=== PATIENT | male | born 1995 ===

== ENCOUNTER 2020-04-06 18:44 | Emergency (ER) | payer SELFPAY ==
[2020-04-06 18:52] VITALS: BP 120/66
[2020-04-06] MEDS ORDERED: DIPHtheria,PERTUSSIS(ACELL),TETANUS VACCINE/PF 0.5 ML VIAL IM ONE (22:42)
--- NOTE | 2020-04-06 23:10 | Emergency Department Report ---
Upper Extremity - HPI Chief Complaint: Puncture Wound Stated Complaint: FINGER LAC Time Seen by Provider: 04/06/20 22:42 Upper Extremity: Right Index Finger Occurred When: Today Symptoms: Yes Pain with Movement, Yes Limited Range of Movement, Yes Laceration or Abrasion, No Numbness, No Weakness, No Swelling, No Bruising/Ecchymosis Other History: 24-year-old [place] male accidentally cut finger on a piece of metal resulting in bleeding [facility]. Reports pain and throbbing with palpation and range of motion. No fever chills or sweats. States that the injury occurred by 1 hour prior to arrival ED Review of Systems ROS: Stated complaint: FINGER LAC Other details as noted in HPI Comment: All other systems reviewed and negative ED Past Medical Hx - Past Medical History Previous Medical History?: No - Surgical History Past Surgical History?: No - Medications Home Medications: Home Medications Medication Instructions Recorded Confirmed Last Taken Type cephALEXin [Keflex] 500 mg PO Q8HR #21 cap 04/06/20 Unknown Rx Upper Extremity Exam - Exam General: Vital signs noted. No distress. Alert and acting appropriately. Head and Torso: No HEENT Abnormality, No Neck Tenderness, No Chest/Lungs Abnormality, No Abdominal Tenderness, No Back Tenderness Shoulder Exam: Yes Normal Range of Motion in Shoulder, No Shoulder Tenderness, No Clavicle Tenderness, No Shoulder Deformity, No AC Joint Tenderness Arm Exam: No Arm/Humerus Tenderness, No Arm Deformity Elbow: No Elbow Tenderness, No Normal Range of Motion in Elbow, No Elbow D eformity Forearm: No Forearm Tenderness, No Forearm Deformity, No Pain with Pronation, No Pain with Supination Wrist: Yes Normal ROM in Wrist, No Wrist Tenderness, No Wrist Deformity, No Snuffbox Tenderness, No Pain with Axial Thumb Compression Hand: Yes Normal ROM in Digit(s), No Hand Tenderness, No Hand Deformity, No Digi t Tenderness, No Digit(s) Deformity, No Tendon Dysfunction CMS Exam: No Broken Skin, No Normal Distal Pulses, No Normal Capillary Refill, No Normal Distal Sensation Hand L/R Front: 1 - Partial avulsion of this area of the finger with the bleeding controlled ca pillary refills are brisk full range of motion is noted. ED Course Vital Signs 04/06/20 18:48 Temperature 98.1 F Pulse Rate 62 Respiratory 16 Rate Blood Pressure 120/66 [Right] O2 Sat by Pulse 99 Oximetry - Procedure Description Procedures done: Wound was irrigated with copious amounts of saline and clean with antibacterial soap and water. A antimicrobial nonstick dressing was placed as hemostasis was achieved and a splint was placed. Critical care attestation.: If time is entered above; I have spent that time in minutes in the direct care of this critically ill patient, excluding procedure time. ED Disposition Clinical Impression: Fingernail avulsion, partial Disposition: [id number] TO HOME OR SELFCARE Is pt being admited?: No Does the pt Need Aspirin: No Condition: Stable Instructions: Skin Avulsion (ED) Additional Instructions: Be sure to keep wound clean with antibacterial soap and water and follow-up in 2 to 3 days for wound reevaluation Prescriptions: cephALEXin [Keflex] 500 mg PO Q8HR #21 cap Referrals: PRIMARY CAREMD [Primary Care Provider] - 3-5 Days NICK DESOUZA MD [Staff Physician] - 3-5 Days Print Language: FRENCH
== END 2020-04-06 23:18 | disposition home or self-care (01) ==
LOC: ED 18:44
DX: S61.310A Laceration without foreign body of right index finger with damage to nail, initial encounter (principal); Z79.899 Other long term (current) drug therapy; W45.8XXA Other foreign body or object entering through skin, initial encounter; Y93.89 Activity, other specified; Y92.89 Other specified places as the place of occurrence of the external cause; Y99.8 Other external cause status
CPT/HCPCS: 90471; 90715